=== PATIENT | male | born 1990 | race African-American/Black ===

== ENCOUNTER 2020-07-16 19:09 | Emergency (ER) | payer OTHER, SELFPAY ==
[2020-07-16 19:46] VITALS: BP 140/81; PULSE 63; RESP 18; TEMP 36.6; O2SAT 99
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
== END 2020-07-16 21:28 | disposition home or self-care (01) ==
PROVIDERS: Emergency Provider Emergency Medicine
DX: S16.1XXA Strain of muscle, fascia and tendon at neck level, initial encounter (principal); S29.012A Strain of muscle and tendon of back wall of thorax, initial encounter; S39.012A Strain of muscle, fascia and tendon of lower back, initial encounter; F17.200 Nicotine dependence, unspecified, uncomplicated; V49.40XA Driver injured in collision with unspecified motor vehicles in traffic accident, initial encounter
CPT/HCPCS: 99283